=== PATIENT | female | born 1965 | race Caucasian/White ===

== ENCOUNTER → 2016-06-08 | Outpatient (CLI) | payer BC ==
[~2016-06-08] MED LIST: ALL180 PO; ASPCH81X PO; BCPILLS PO; BIOT1CAP8 PO; CHOL100010 PO; EFFSR150 PO; HYDR-5688 PO; MULT-506 PO; PANT40TA PO; SNG10 PO
== END | disposition home or self-care (01) ==
LOC: C.PAPS 16:36
PROVIDERS: ATTEND Obstetrics & Gynecology
DX: Z01.419 Encounter for gynecological examination (general) (routine) without abnormal findings (principal)

== ENCOUNTER → 2016-06-24 | Outpatient (CLI) | payer BC ==
--- NOTE | 2016-06-24 15:59 | MAMMOGRAPHY REPORT ---
BILATERAL DIGITAL DIAGNOSTIC MAMMOGRAM TOMOSYNTHESIS WITH CAD: 06/24/2016 CLINICAL HISTORY: Interval follow-up of right breast calcifications. The patient denies any current palpable lumps or other complaints. TECHNIQUE: Breast tomosynthesis in addition to standard 2D mammography was performed. Current study was also evaluated with a Computer Aided Detection (CAD) system. Bilateral CC and MLO 2-D and burak synthesis images were obtained; tomosynthesis images were obtained of the implant displaced views on ly. Spot magnification right cc and ML views were also obtained. COMPARISON: Comparison is made to exams dated: 07/01/2015 mammogram, 12/19/2014 mammogram, 06/19/2014 s tereotactic biopsy, 06/14/2014 mammogram, 06/08/2012 mammogram, and 10/08/2010 mammogram - [facility]. BREAST COMPOSITION: The tissue of both breasts is heterogeneously dense, which may obscure small ma sses. FINDINGS: Spot magnification views of the right breast again demonstrate a small 2 mm cluster of atif cifications within the right central breast. The calcifications are stable dating back to at least the 06/19/2014 exam. On the 06/19/2014 exam, the calcifications were all shown to layer on the right lateral view, consistent with benign milk of calcium. The calcifications are benign given the morph ology and long-term stability and are consistent with milk of calcium. The remainder of both breasts are stable compared to prior exams, without suspicious masses, calcifi cations, or areas of architectural distortion noted. Bilateral subpectoral saline implants are agai n noted. IMPRESSION: ACR BI-RADS CATEGORY 2: BENIGN The right breast calcifications are stable dating back to the May 2014 exam and are benign and compatible with milk of calcium. There is no mammographic evidence of malignancy in either breast. A 1 year screening mammogram is recommended. The patient has been verbally notified of the results. Approximately 10% of breast cancers are not detected with mammography. A negative mammographic repor t should not delay biopsy if a clinically suggestive mass is present. Radha Sierra M.D. /:06/24/2016 15:01:01 Discharge Coordinator: Cornelia BURDEN(Arnoldo)(Jenny), [facility] letter sent: Normal 1/2 BI-RADS Code: ACR BI-RADS Category 2: Benign
== END | disposition home or self-care (01) ==
LOC: C.MAMM 13:22
PROVIDERS: ATTEND Obstetrics & Gynecology
DX: R92.1 Mammographic calcification found on diagnostic imaging of breast (principal); Z98.82 Breast implant status

== ENCOUNTER 2016-07-14 14:01 | Inpatient (IN) | payer BC ==
[~2016-07-14] VITALS: Ht 154.9 cm; Wt 59.0 kg
[~2016-07-14 14:01] MED LIST changes: -ASPCH81X PO; -BIOT1CAP8 PO; -CHOL100010 PO; -HYDR-5688 PO; -MULT-506 PO; -PANT40TA PO
[2016-07-14] MEDS ORDERED: SODIUM CHLORIDE 0.9% 1000ML 1,000 ML IV STA ×2 (15:45)
[2016-07-14] MEDS ORDERED: ONDANSETRON INJ 2 MG/ML 2 ML VIAL IV STA (15:45)
--- NOTE | 2016-07-14 15:53 | EMERGENCY ROOM VISIT NOTE ---
History Report prepared by Johanna: Jason Dowling Under the Supervision of: Dr. Ancelmo Castle D.O. First contact with patient: 15:31 Chief Complaint: ABDOMINAL PAIN Stated Complaint: ABD. PAIN, FEVER, NAUSEA, SPASMS, LOWER BACK PAIN Nursing Triage Summary: pt here with diarrhea since this am. pt states also started with a fever today. pt states hx of "bowel problems" abd pains, nauseated History of Present Illness The patient is a 50 year old female who presents to the Emergency Room with complaints of waxing and waning abdominal pain that started upon waking this morning. She has been having episodes of diarrhea, and has been nauseous for the past 4 or 5 days. She says that she is getting intermittent abdominal spasms , which are followed up with dull abdominal pain. She describes the spasms as if something is "getting twisted". The patient went to [employer] earlier today, and was told that she has a fever of 102. The patient also had an episode of hematochezia. She notes that she has had chronic irregular bowel movements. In 2013, she had a colonoscopy and full workup, which did not reveal anything irregular. The patient gets chronic low back pain. She denies any urinary symptoms. She drinks occasional alcohol and does not use tobacco products. Source of History: patient Onset: Upon waking this morning Position: abdomen Quality: other (spasms, followed with dull pain) Timing: waxes/wanes Associated Symptoms: + diarrhea, + hematochezia, + nausea, No urinary symptoms Review of Systems See HPI for pertinent positives & negatives. A total of 10 systems reviewed and were otherwise negative. Past Medical & Surgical Medical Problems: (1) Asthma (2) Bronchitis (3) Diarrhea (4) Gallbladder disease Family History Heart disease Hypertension Social History Smoking Status: Never Smoker Smokeless Tobacco Use: No Alcohol Use: occasionally Marital Status: Housing Status: lives with family Occupation Status: employed Current/Historical Medications Scheduled Aspirin (Aspirin Chewable), 81 MG PO UD Biotin (Biotin), Unknown Dose PO DAILY Cholecalciferol (Vitamin D), 1,000 UNIT PO DAILY Multivitamin (Multivitamin), 1 TAB PO DAILY Allergies Coded Allergies: No Known Allergies (Verified , 07/14/16) Physical Exam Vital Signs Date Time Temp Pulse Resp B/P Pulse Ox O2 Delivery O2 Flow Rate FiO2 07/14/16 19:34 37.7 100 18 97/64 98 Room Air 07/14/16 17:45 37.7 106 18 109/68 97 Room Air 07/14/16 16:10 101 16 105/72 97 Room Air 07/14/16 14:10 37.5 117 16 122/81 96 Room Air Physical Exam GENERAL: Patient is awake, alert, and in no acute distress. Patient is resting comfortably and showing no signs of anxiety EYES: The conjunctivae are clear. The pupils are round and reactive. EARS, NOSE, MOUTH AND THROAT: The nose is without any evidence of any deformity. Mucous membranes are moist tongue is midline NECK: The neck is nontender and supple. RESPIRATORY: Normal respiratory effort is noted there is no evidence of wheezing rhonchi or rales CARDIOVASCULAR: Regular rate and rhythm noted there no murmurs rubs or gallops normal S1 normal S2 GASTROINTESTINAL: The abdomen was soft with significant right lower and right middle tenderness to palpation, no guarding or rigidity. BACK: Mild right CVA tenderness to percussion. No midline tenderness noted. Range of motion intact. MUSCULOSKELETAL/EXTREMITIES: There is no evidence of gross deformity full range of motion is noted in the hips and shoulders SKIN: There is no obvious evidence of any rash. There are no petechiae, pallor or cyanosis noted. NEUROLOGIC: Patient is awake alert and oriented x3. Medical Decision & Procedures ER Provider Diagnostic Interpretation: Radiology results as stated below per my review and radiologist interpretation: ABDOMINAL ULTRASOUND, RIGHT UPPER QUADRANT HISTORY: Generalized abdominal pain.. COMPARISON: None. FINDINGS: Pancreas: The pancreas demonstrates a normal echotexture. Liver: Unremarkable. Gallbladder: No gallbladder wall thickening. No gallstones. The gallbladder is mildly distended. CBD: 6 mm. Right kidney: No hydronephrosis. IMPRESSION: The gallbladder is mildly distended. However, there is no gallbladder wall thickening.. No gallstones. Electronically signed by: Vish Alvarado M.D. 07/14/2016 6:14 PM Dictated Date/Time: 07/14/2016 6:12 PM APPENDIX ULTRASOUND HISTORY: right sided pain COMPARISON: None. FINDINGS: Transabdominal scanning of the right lower quadrant was performed. The appendix was not identified. There are no fluid collections or masses within the right lower quadrant. IMPRESSION: The appendix was not identified. Electronically signed by: Vish Alvarado M.D. 07/14/2016 6:12 PM Dictated Date/Time: 07/14/2016 6:12 PM ABDOMEN AND PELVIS CT WITH IV AND ORAL CONTRAST CT DOSE: 274.29 mGy.cm HISTORY: right sided pain TECHNIQUE: Multiaxial CT images of the abdomen and pelvis were performed following the use of intravenous and oral contrast. COMPARISON STUDY: Abdomen and pelvis CT 11/17/2005. FINDINGS: The lung bases are clear. Bilateral breast augmentation. The liver, pancreas, spleen, and adrenal glands are unremarkable. The kidneys enhance normally. No renal stones. Mild fullness within the left renal collecting system without mimi hydronephrosis. No retroperitoneal lymphadenopathy. The gallbladder size distended. The uterus, adnexa, and bladder are unremarkable. The patient appears to be identified and is normal in caliber. This is best seen on image 267. No bowel wall thickening or obstruction. IMPRESSION: 1. No bowel wall thickening or obstruction. 2. The appendix appears to be within normal limits. 3. Mild fullness within the left renal collecting system without mimi hydronephrosis. 4. Mildly distended gallbladder. No gallbladder wall thickening. Recommend correlation with LFTs. Electronically signed by: Vish Alvarado M.D. 07/14/2016 7:06 PM Dictated Date/Time: 07/14/2016 6:57 PM Laboratory Results Test 07/14/16 15:42 07/14/16 16:54 07/14/16 17:40 Lipase 174 U/L ([id number]) Chemistry Specimen Hemolysis Human Chorionic Gonadotropin, Qual NEG (NEG) Urine Color YELLOW Urine Appearance CLEAR (CLEAR) Urine pH 5.0 (4.5-7.5) Urine Specific [place] 1.009 (1.000-1.030) Urine Protein NEG (NEG) Urine Glucose (UA) NEG (NEG) Urine Ketones NEG (NEG) Urine Occult Blood 1+ (NEG) Urine Nitrite NEG (NEG) Urine Bilirubin NEG (NEG) Urine Urobilinogen NEG (NEG) Urine Leukocyte Esterase NEG (NEG) Urine WBC (Auto) 0 /hpf (0-5) Urine RBC (Auto) 0-4 /hpf (0-4) Urine Hyaline Casts (Auto) 0 /lpf (0-5) Urine Epithelial Cells (Auto) 0-5 /lpf (0-5) Urine Bacteria (Auto) NEG (NEG) Laboratory results per my review. Medications Administered Medications (Trade) Dose Ordered Sig/Celeste Route Start Time Stop Time Status Last Admin Dose Admin Sodium Chloride (Nss 1000ml) 1,000 ml @ 999 mls/hr Q1H1M STAT IV 07/14/16 15:45 07/14/16 16:45 DC 07/14/16 16:09 999 MLS/HR Ondansetron HCl 4 mg 4 mg NOW STAT IV 07/14/16 15:45 07/14/16 15:47 DC 07/14/16 16:08 4 MG Sodium Chloride (Nss 1000ml) 1,000 ml @ 250 mls/hr Q4H STAT IV 07/14/16 15:45 07/14/16 19:44 DC 07/14/16 15:45 250 MLS/HR Morphine Sulfate (MoRPHine SULFATE INJ) 4 mg Q15M PRN IV 07/14/16 15:45 07/14/16 23:05 DC 07/14/16 19:41 4 MG ED Course 1542: The patient was evaluated in room C8. A complete history and physical examination were performed. 1545: Ordered Morphine Sulfate Inj 4 mg IV PRN, NSS 1000 ml @ 250 mls/hr IV, Zofran Inj 4 mg IV, NSS 1000 ml @ 999 mls/hr IV. 1717: I reevaluated the patient. 1913: Upon reevaluation, the patient is still not feeling well. I discussed results and treatment plan with her. She verbalizes agreement and understanding. The patient will be evaluated for further management and care. 1947: I discussed the patient with Dr. Tran [place] [facility] [place]. 1951: I discussed the patient with Dr. Urban Terrazashey [facility] - she will evaluate the patient for further treatment. Medical Decision Differential diagnosis: Etiologies such as appendicitis, diverticulitis, PUD, biliary pathology, UTI, pancreatitis, obstruction, mesenteric ischemia, aortic pathology, infections, inflammatory bowel disease, renal colic, as well as others were entertained. Nursing notes reviewed. The patient is a 50-year-old female who presented to the emergency department for an evaluation of abdominal pain. The patient's pain appeared to be mostly right sided. She was experiencing this pain for the last few weeks but this pain became worse over the last 24 hours and she was noted to have a fever. The patient was treated with IV fluids IV pain medicine and IV antiemetics. She was not significantly improved. I initially discussed his case with the on-call general surgeon. He does feel that given the patient's fever and ongoing pain she may require further inpatient workup. For this reason I discussed his case with the on-call [facility] hospitalist group. They've agreed to evaluate the patient in the emergency department for further management and disposition. Consults Time Called: 1939 Consulting Physician: Dr. Urban Conde [facility] family medicine Returned Call: 1951 I discussed the patient with Dr. Urban Conde [facility] family medicine - she will evaluate the patient for further treatment. Additional Consults: Time Called: 1939 Consulted Physician: Dr. Marc WITT general surgery Returned Call: 1947 Additional Comments: I discussed the patient with Dr. Marc WITT general surgery. Impression Primary Impression: Right sided abdominal pain Additional Impressions: Diarrhea Fever Scribe Attestation The scribe's documentation has been prepared under my direction and personally reviewed by me in its entirety. I confirm that the note above accurately reflects all work, treatment, procedures, and medical decision making performed by me. Departure Information Dispostion Being Evaluated By Hospitalist Referrals Pamela Ward M.D. (PCP) Patient Instructions My [facility] Problem Qualifiers Additional Impressions: Diarrhea Diarrhea type: unspecified type Qualified Codes: R19.7 - Diarrhea, unspecified Fever Fever type: unspecified Qualified Codes: R50.9 - Fever, unspecified
[2016-07-14] MEDS ORDERED: ASPCH81X PO (15:54)
[2016-07-14] MEDS ORDERED: MULT-506 PO (15:54)
[2016-07-14] MEDS ORDERED: BIOT1CAP8 PO (15:54)
[2016-07-14] MEDS ORDERED: CHOL100010 PO (15:54)
[2016-07-14 16:03] LABS: BASO % 0.1 %; BASO ABS # 0.01 K/uL (0-0.2); COMPLETE YES; HEMATOCRIT 40.4 % (37-47); IG% 0.1 %; LYMPH % 3.7 %; MEAN CELL VOLUME 94.4 fL (80-100); MEAN CORPUSCULAR HEMOGLOBIN 32.2 pg (25-34); MEAN CORPUSCULAR HGB CONC 34.2 g/dl (32-36); MEAN PLATELET VOLUME 9.9 fL (7.4-10.4); MONO % 2.5 %; NEUT % 93.6 %; PLATELET COUNT 245 K/uL (130-400); RED BLOOD COUNT 4.28 M/uL (4.2-5.4); WHITE BLOOD COUNT 8.13 K/uL (4.8-10.8)
[2016-07-14] MEDS: MoRPHine SULFATE 4 MG/ML 1 ML CARP\\VIAL IV PRN ×2 (16:09→19:41)
[2016-07-14 17:45] LABS: PREG INTERNAL NEGATIVE QC NEG CLEAR BACKGROUND; PREG INTERNAL POSITIVE QC POS CONTROL LINE
[2016-07-14 18:00] LABS: URINE APPEARANCE CLEAR (CLEAR); URINE BILIRUBIN NEG (NEG); URINE COLOR YELLOW; URINE EPITHELIAL CELL AUTO 0-5 /lpf (0-5); URINE NITRITE NEG (NEG); URINE SPECIFIC GRAVITY 1.009 (1.000-1.030); UROBILINOGEN NEG (NEG)
[2016-07-14 18:11] LABS: MANUAL MICROSCOPIC REQUIRED? NO; REVIEW REQ? NO
--- NOTE | 2016-07-14 18:14 | DIAGNOSTIC IMAGING REPORT ---
APPENDIX ULTRASOUND HISTORY: right sided pain COMPARISON: None. FINDINGS: Transabdominal scanning of the right lower quadrant was performed. The appendix was not identified. There are no fluid collections or masses within the right lower quadrant. IMPRESSION: The appendix was not identified. Electronically signed by: Vish Alvarado M.D. 07/14/2016 6:12 PM Dictated Date/Time: 07/14/2016 6:12 PM
--- NOTE | 2016-07-14 18:15 | DIAGNOSTIC IMAGING REPORT ---
ABDOMINAL ULTRASOUND, RIGHT UPPER QUADRANT HISTORY: Generalized abdominal pain.. COMPARISON: None. FINDINGS: Pancreas: The pancreas demonstrates a normal echotexture. Liver: Unremarkable. Gallbladder: No gallbladder wall thickening. No gallstones. The gallbladder is mildly distended. CBD: 6 mm. Right kidney: No hydronephrosis. IMPRESSION: The gallbladder is mildly distended. However, there is no gallbladder wall thickening.. No gallstones. Electronically signed by: Vish Alvarado M.D. 07/14/2016 6:14 PM Dictated Date/Time: 07/14/2016 6:12 PM
[2016-07-14 18:35] LABS: GLUCOSE 99 mg/dl (70-99)
[2016-07-14 18:36] LABS: BLOOD UREA NITROGEN 15 mg/dl (7-18); BUN/CREATININE RATIO 19.5 (10-20); CALCIUM 8.8 mg/dl (8.5-10.1); CARBON DIOXIDE 26 mmol/L (21-32); CHLORIDE 104 mmol/L (98-107); CREATININE 0.77 mg/dl (0.60-1.20); POTASSIUM 3.9 mmol/L (3.5-5.1); SODIUM 138 mmol/L (136-145)
[2016-07-14 18:37] LABS: ALKALINE PHOSPHATASE 98 U/L (45-117); ALT/SGPT 26 U/L (12-78); AST/SGOT 22 U/L (15-37)
[2016-07-14] MEDS ORDERED: OPTIRAY 320 IV PRN (18:45)
--- NOTE | 2016-07-14 19:07 | DIAGNOSTIC IMAGING REPORT ---
ABDOMEN AND PELVIS CT WITH IV AND ORAL CONTRAST CT DOSE: 274.29 mGy.cm HISTORY: right sided pain TECHNIQUE: Multiaxial CT images of the abdomen and pelvis were performed following the use of intravenous and oral contrast. COMPARISON STUDY: Abdomen and pelvis CT 11/17/2005. FINDINGS: The lung bases are clear. Bilateral breast augmentation. The liver, pancreas, spleen, and adrenal glands are unremarkable. The kidneys enhance normally. No renal stones. Mild fullness within the left renal collecting system without mimi hydronephrosis. No retroperitoneal lymphadenopathy. The gallbladder size distended. The uterus, adnexa, and bladder are unremarkable. The patient appears to be identified and is normal in caliber. This is best seen on image 267. No bowel wall thickening or obstruction. IMPRESSION: 1. No bowel wall thickening or obstruction. 2. The appendix appears to be within normal limits. 3. Mild fullness within the left renal collecting system without mimi hydronephrosis. 4. Mildly distended gallbladder. No gallbladder wall thickening. Recommend correlation with LFTs. Electronically signed by: Vish Alvarado M.D. 07/14/2016 7:06 PM Dictated Date/Time: 07/14/2016 6:57 PM
[2016-07-14] MEDS ORDERED: ONDANSETRON INJ 2 MG/ML 2 ML VIAL IV PRN (21:00)
[2016-07-14] MEDS ORDERED: ACETAMINOPHEN 325 MG TAB PO PRN (21:00)
[2016-07-14] MEDS ORDERED: MoRPHine SULFATE 4 MG/ML 1 ML CARP\\VIAL IV PRN (21:00)
[2016-07-14] MEDS ORDERED: ACETAMINOPHEN IV 100 ML IV PRN (21:00)
[2016-07-14] MEDS ORDERED: MoRPHine SULFATE 2 MG/ML CARP IV PRN (21:00)
[2016-07-14] MEDS: KETOROLAC TROMETHAMINE 30 MG/ML VIAL IV PRN (22:13)
[2016-07-14] MEDS ORDERED: PIPERACILLIN/TAZOBACTAM 4.5 GM/100ML D5W IV STA (22:23)
--- NOTE | 2016-07-14 22:23 | History and Physical ---
History & Physical Date & Time of Service: Jul 14, 2016 at 22:08 Chief Complaint: Abd. Pain, Fever, Nausea, Spasms, Lower Back Pain Primary Care Physician: Pamela Ward M.D. History of Present Illness Source: patient The patient is a 50-year-old female who presents to the emergency department with complaint of abdominal pain, diarrhea and nausea over the past 4-5 days, which worsened considerably this morning. She has had off-and-on symptoms since 2013, at which time she had a colonoscopy and other testing which was normal. She went to [facility] [employer] earlier in the day today, and was told that she had a fever of 102. She did have a single episode of hematochezia. Today the abdominal pain has been in the form of spasms and right upper quadrant, and generalized abdominal pain throughout. She has not had any recent travel or sick exposures, and she has not eaten any questionable foods. Past Medical/Surgical History Medical Problems: (1) Asthma Status: Resolved (2) Bronchitis Status: Resolved (3) Diarrhea Status: Chronic Family History Heart disease Hypertension Social History Smoking Status: Never Smoker Smokeless Tobacco Use: No Alcohol Use: none Drug Use: none Marital Status: Housing status: lives with family Occupational Status: employed Multi-Drug Resistant Organisms History of MDRO: No Allergies Coded Allergies: No Known Allergies (Verified , 07/14/16) Home Medications Scheduled Aspirin (Aspirin Chewable), 81 MG PO UD Biotin (Biotin), Unknown Dose PO DAILY Cholecalciferol (Vitamin D), 1,000 UNIT PO DAILY Multivitamin (Multivitamin), 1 TAB PO DAILY Review of Systems The patient denies chest pain, palpitations, shortness of breath, cough, lower extremity swelling, vision change, hearing change, sore throat, chills, sweats , weight change, blood in urine or stool, dysuria, urinary frequency or urgency , lightheadedness, dizziness, headache, memory loss, rash, abnormal bruising or bleeding, imbalance, focal weakness, numbness or tingling in arms or legs, arthralgias or myalgias, neck pain, night sweats, or allergy symptoms. The review of systems is otherwise negative other than for that already noted above, and at least 10 systems have been reviewed. Physical Exam Vital Signs Date Time Temp Pulse Resp B/P Pulse Ox O2 Delivery O2 Flow Rate FiO2 07/14/16 22:04 39.1 104 16 104/65 96 Room Air 07/14/16 21:02 38.3 107 20 111/65 96 Room Air 07/14/16 19:34 37.7 100 18 97/64 98 Room Air 07/14/16 17:45 37.7 106 18 109/68 97 Room Air 07/14/16 16:10 101 16 105/72 97 Room Air 07/14/16 14:10 37.5 117 16 122/81 96 Room Air The patient is awake, well-developed and adequately nourished, alert and oriented 3, normocephalic and atraumatic, lying in bed and in mild acute distress. HEENT--PERRL, EOMI, mucous membranes and oropharynx dry. Neck--supple, no JVD or bruits, thyroid normal, trachea midline, no adenopathy. Heart--normal S1 and S2, no extra beats, no murmurs, rubs or gallops. Lungs--clear bilaterally with good air movement, no respiratory distress, no accessory muscle use. Abdomen--normal bowel sounds and soft, nontender post morphine, and nondistended , no hernias or masses, no organomegaly. Extremities--no cyanosis, clubbing or edema. There are good distal pulses b/l. Dermatologic--normal skin turgor, normal color, warm and dry, no abnormal lymph nodes, no rash. Neurologic--cranial nerves II through XII grossly intact, motor and sensory examination normal. Rheumatologic--normal range of motion, nontender, muscles and joints. Psychiatric--normal affect. Diagnostics Laboratory Results Results Past 24 Hours Test 07/14/16 15:42 07/14/16 16:54 07/14/16 17:40 Range/Units White Blood Count 8.13 4.8-10.8 K/uL Red Blood Count 4.28 4.2-5.4 M/uL Hemoglobin 13.8 12.0-16.0 g/dL Hematocrit 40.4 37-47 % Mean Corpuscular Volume 94.4 80-100 fL Mean Corpuscular Hemoglobin 32.2 25-34 pg Mean Corpuscular Hemoglobin Concent 34.2 32-36 g/dl Platelet Count 245 130-400 K/uL Mean Platelet Volume 9.9 7.4-10.4 fL Neutrophils (%) (Auto) 93.6 % Lymphocytes (%) (Auto) 3.7 % Monocytes (%) (Auto) 2.5 % Eosinophils (%) (Auto) 0.0 % Basophils (%) (Auto) 0.1 % Neutrophils # (Auto) 7.61 1.4-6.5 K/uL Lymphocytes # (Auto) 0.30 1.2-3.4 K/uL Monocytes # (Auto) 0.20 0.11-0.59 K/uL Eosinophils # (Auto) 0.00 0-0.5 K/uL Basophils # (Auto) 0.01 0-0.2 K/uL RDW Standard Deviation 48.3 36.4-46.3 fL RDW Coefficient of Variation 14.1 11.5-14.5 % Immature Granulocyte % (Auto) 0.1 % Immature Granulocyte # (Auto) 0.01 0.00-0.02 K/uL Sodium Level 138 136-145 mmol/L Potassium Level 3.9 3.5-5.1 mmol/L Chloride Level 104 98-107 mmol/L Carbon Dioxide Level 26 21-32 mmol/L Anion Gap 8.0 3-11 mmol/L Blood Urea Nitrogen 15 7-18 mg/dl Creatinine 0.77 0.60-1.20 mg/dl Est Creatinine Clear Calc Drug Dose 72.1 ml/min Estimated GFR () 104.3 Estimated GFR (Non- 90.0 BUN/Creatinine Ratio 19.5 10-20 Random Glucose 99 70-99 mg/dl Calcium Level 8.8 8.5-10.1 mg/dl Total Bilirubin 0.4 0.2-1 mg/dl Direct Bilirubin 0-0.2 mg/dl Aspartate Amino Transf (AST/SGOT) 22 15-37 U/L Alanine Aminotransferase (ALT/SGPT) 26 12-78 U/L Alkaline Phosphatase 98 45-117 U/L Total Protein 7.6 6.4-8.2 gm/dl Albumin 3.9 3.4-5.0 gm/dl Lipase 174 73-393 U/L Chemistry Specimen Hemolysis Human Chorionic Gonadotropin, Qual NEG NEG Urine Color YELLOW Urine Appearance CLEAR CLEAR Urine pH 5.0 4.5-7.5 Urine Specific [place] 1.009 1.000-1.030 Urine Protein NEG NEG Urine Glucose (UA) NEG NEG Urine Ketones NEG NEG Urine Occult Blood 1+ NEG Urine Nitrite NEG NEG Urine Bilirubin NEG NEG Urine Urobilinogen NEG NEG Urine Leukocyte Esterase NEG NEG Urine WBC (Auto) 0 0-5 /hpf Urine RBC (Auto) 0-4 0-4 /hpf Urine Hyaline Casts (Auto) 0 0-5 /lpf Urine Epithelial Cells (Auto) 0-5 0-5 /lpf Urine Bacteria (Auto) NEG NEG Diagnostic Radiology ABDOMINAL ULTRASOUND, RIGHT UPPER QUADRANT HISTORY: Generalized abdominal pain.. COMPARISON: None. FINDINGS: Pancreas: The pancreas demonstrates a normal echotexture. Liver: Unremarkable. Gallbladder: No gallbladder wall thickening. No gallstones. The gallbladder is mildly distended. CBD: 6 mm. Right kidney: No hydronephrosis. IMPRESSION: The gallbladder is mildly distended. However, there is no gallbladder wall thickening.. No gallstones. Electronically signed by: Vish Alvarado M.D. Patient Name: JONAH ARMIJO Unit Number: [id number] Dictated: 07/14/161811 Transcribed: 07/14/161811 [facility] Printed Date/Time: [~ rep prt dt]/[~ rep prt tm] [~ rep ct labl] - [~ rep ct ivnm] [facility] [place] [address] Dictated: 07/14/161811 Transcribed: 07/14/161811 [facility] Printed Date/Time: [~ rep prt dt]/[~ rep prt tm] [~ rep ct labl] - [~ rep ct ivnm] [~ rep ct add3]] APPENDIX ULTRASOUND HISTORY: right sided pain COMPARISON: None. FINDINGS: Transabdominal scanning of the right lower quadrant was performed. The appendix was not identified. There are no fluid collections or masses within the right lower quadrant. IMPRESSION: The appendix was not identified. Electronically signed by: Vish Alvarado M.D. 07/14/2016 6:12 PM Dictated Date/Time: 07/14/2016 6:12 PM The status of this report is Signed. Draft = Not yet reviewed or approved by Radiologist. Signed = Reviewed and approved by Radiologist. <AttendingPhy></AttendingPhy> <FamilyPhy>Pamela Ward M.D.</FamilyPhy> < PrimaryPhy>Pamela Ward M.D.</PrimaryPhy> <UnitNumber>[id number]</UnitNumber> < VisitNumber>[id number]</VisitNumber> <PatientName>JONAH ARMIJO</PatientName> < DateOfBirth>1965</DateOfBirth> <Location>[facility]</Location> <ServiceDate></ServiceDate> <MNE>ESINDI</MNE> <OrderingPhy>Ancelmo Castle D.O.</ OrderingPhy> <OrderingPhyMNE>f rep ord dr patel</OrderingPhyMNE> <DictatingPhyMNE> f rep dict dr patel</DictatingPhyMNE> <CCListMNE>f rep ct jorge</CCListMNE> < AdmittingPhyMNE>f pt admit dr patel</AdmittingPhyMNE> <AttendingPhyMNE>f pt attend dr patel</AttendingPhyMNE> <ConsultingPhyMNE>f pt consult dr patel</ConsultingPhyMNE> <FamilyPhyMNE>f pt fam dr patel</FamilyPhyMNE> <OtherPhyMNE>f pt other dr patel</OtherPhyMNE> < PrimaryPhyMNE>f pt prim care dr patel</PrimaryPhyMNE> <ReferringPhyMNE>f pt referring dr patel</ReferringPhyMNE> [~ rep ct add3]] ABDOMEN AND PELVIS CT WITH IV AND ORAL CONTRAST CT DOSE: 274.29 mGy.cm HISTORY: right sided pain TECHNIQUE: Multiaxial CT images of the abdomen and pelvis were performed following the use of intravenous and oral contrast. COMPARISON STUDY: Abdomen and pelvis CT 11/17/2005. FINDINGS: The lung bases are clear. Bilateral breast augmentation. The liver, pancreas, spleen, and adrenal glands are unremarkable. The kidneys enhance normally. No renal stones. Mild fullness within the left renal collecting system without miim hydronephrosis. No retroperitoneal lymphadenopathy. The gallbladder size distended. The uterus, adnexa, and bladder are unremarkable. The patient appears to be identified and is normal in caliber. This is best seen on image 267. No bowel wall thickening or obstruction. IMPRESSION: 1. No bowel wall thickening or obstruction. 2. The appendix appears to be within normal limits. 3. Mild fullness within the left renal collecting system without mimi hydronephrosis. 4. Mildly distended gallbladder. No gallbladder wall thickening. Recommend correlation with LFTs. Electronically signed by: Vish Alvarado M.D. 07/14/2016 7:06 PM Dictated Date/Time: 07/14/2016 6:57 PM The status of this report is Signed. Draft = Not yet reviewed or approved by Radiologist. Signed = Reviewed and approved by Radiologist. <AttendingPhy></AttendingPhy> <FamilyPhy>Pamela Ward M.D.</FamilyPhy> < PrimaryPhy>Pamela Ward M.D.</PrimaryPhy> <UnitNumber>[id number]</UnitNumber> < VisitNumber>[id number]</VisitNumber> <PatientName>JONAH ARMIJO</PatientName> < DateOfBirth>1965</DateOfBirth> <Location>[facility]</Location> <ServiceDate></ServiceDate> <MNE>ESINDI</MNE> <OrderingPhy>Ancelmo Castle D.O.</ OrderingPhy> <OrderingPhyMNE>f rep ord dr patel</OrderingPhyMNE> <DictatingPhyMNE> f rep dict dr patel</DictatingPhyMNE> <CCListMNE>f rep ct jorge</CCListMNE> < AdmittingPhyMNE>f pt admit dr patel</AdmittingPhyMNE> <AttendingPhyMNE>f pt attend dr patel</AttendingPhyMNE> <ConsultingPhyMNE>f pt consult dr patel</ConsultingPhyMNE> <FamilyPhyMNE>f pt fam dr patel</FamilyPhyMNE> <OtherPhyMNE>f pt other dr patel</OtherPhyMNE> < PrimaryPhyMNE>f pt prim care dr patel</PrimaryPhyMNE> <ReferringPhyMNE>f pt referring dr patel</ReferringPhyMNE> Impression Assessment and Plan Abdominal pain/nausea/vomiting and diarrhea/distended gallbladder on ultrasound and CT--patient will be admitted to the medical surgical floor and nothing by mouth status. Place on Zosyn 3.375 mg IV every 6 hours, Zofran 4 mg IV every 6 hours when necessary, Protonix 40 mg IV daily, normal saline with potassium chloride 20 mEq 100 mils per hour. Order a HIDA scan with gallbladder ejection fraction for further assessment. 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 Hold aspirin, vitamin, vitamin D, multivitamin. Level of Care Med/Surg Advanced Directives Existing Advance Directive: No Existing Living Will: No Existing Power of Hardness Inspector: No Resuscitation Status FULL RESUSCITATION VTE Prophylaxis VTE Risk Assessment Done? Y/N: Yes Risk Level: Moderate Given or contraindicated: SCD's
[2016-07-14] MEDS ORDERED: PIPERACILL/TAZOBAC CONSULT ACTIVE PRN (22:30)
[2016-07-14 23:00] VITALS: Ht 154.9 cm; Wt 59.0 kg
[2016-07-14 23:04] VITALS: BP 115/69; PULSE 92; TEMP 37.5; O2SAT 93
[2016-07-15] MEDS: NSS + 20MEQ KCL 1000ML 1,000 ML IV SCH ×3 (00:08→18:31)
[2016-07-15 05:24] LABS: COMPLETE YES; EOS % 0.2 %; HEMATOCRIT 36.9 % (37-47); LYMPH % 13.8 %; MEAN CELL VOLUME 93.2 fL (80-100); MEAN CORPUSCULAR HEMOGLOBIN 31.1 pg (25-34); MEAN CORPUSCULAR HGB CONC 33.3 g/dl (32-36); MEAN PLATELET VOLUME 9.1 fL (7.4-10.4); MONO % 5.3 %; NEUT % 80.7 %; PLATELET COUNT 185 K/uL (130-400); RED BLOOD COUNT 3.96 M/uL (4.2-5.4); WHITE BLOOD COUNT 4.34 K/uL (4.8-10.8)
[2016-07-15 05:33] LABS: INR 1.1 (0.9-1.1); PARTIAL THROMBOPLASTIN RATIO 1.2; PROTHROMBIN TIME (PATIENT) 11.6 SECONDS (9.0-12.0)
[2016-07-15] MEDS: PIPERACILL/TAZOBAC IV 3.375 GM in DEXTROSE 5% 100ML 100 ML IV SCH ×3 (05:36→22:13)
[2016-07-15 06:00] LABS: ALKALINE PHOSPHATASE 73 U/L (45-117); ALT/SGPT 22 U/L (12-78); AST/SGOT 18 U/L (15-37); BLOOD UREA NITROGEN 7 mg/dl (7-18); BUN/CREATININE RATIO 9.2 (10-20); CALCIUM 7.9 mg/dl (8.5-10.1); CARBON DIOXIDE 27 mmol/L (21-32); CHLORIDE 109 mmol/L (98-107); CREATININE 0.81 mg/dl (0.60-1.20); GLUCOSE 91 mg/dl (70-99); MAGNESIUM 1.7 mg/dl (1.8-2.4); POTASSIUM 3.8 mmol/L (3.5-5.1); SODIUM 143 mmol/L (136-145)
[2016-07-15 08:00] VITALS: O2SAT 95
[2016-07-15 08:11] VITALS: BP 104/64; PULSE 83; TEMP 37.5; O2SAT 95
[2016-07-15] MEDS: PANTOprazole INJ 40 MG in SYRINGE 0 ML IV SCH (11:10)
[2016-07-15] MEDS ORDERED: SINCALIDE INJ 1.2 MCG in SODIUM CHLORIDE 0.9% 100ML 100 ML IV SCH (13:30)
--- NOTE | 2016-07-15 14:36 | Progress Note ---
Subjective Date of Service: Jul 15, 2016. (Judith Romano PA-C) Subjective Pt evaluation today including: conversation w/ patient Patient seen and evaluated. Last fever at 11 PM. Patient denies fever/chills. She states her pain is adequately controlled at this time. However pain is exacerbated with palpation of the abdomen. No acute abdomen with rigidity/ guarding. She is nothing by mouth awaiting HIDA scan. Continues to have diarrhea. She reports this is been ongoing issue 3 years. (Judith Romano PA-C) Problem List Medical Problems: (1) Diarrhea Status: Chronic (2) Fever Status: Acute (3) Right sided abdominal pain Status: Acute (Judith Romano PA-C) Review of Systems Constitutional: No chills, No fever Respiratory: No cough, No shortness of breath Cardiac: No chest pain Abdomen: + diarrhea, + nausea, + pain ("twisting"), No vomiting Musculoskeletal: No calf pain, No swelling Female : No dysuria (Judith Romano PA-C) Medications Current Inpatient Medications Medications (Trade) Dose Ordered Sig/[place] Route Start Time Stop Time Status Last Admin Dose Admin Ioversol (Optiray 320) 125 ml UD PRN IV 07/14/16 18:45 07/18/16 18:44 Acetaminophen (Tylenol Tab) 650 mg Q4H PRN PO 07/14/16 21:00 08/13/16 20:59 07/14/16 21:12 650 MG Ondansetron HCl 4 mg 4 mg Q6H PRN IV 07/14/16 21:00 08/13/16 20:59 Acetaminophen (Ofirmev Iv) 100 ml @ 400 mls/hr Q8H PRN IV 07/14/16 21:00 08/13/16 20:59 Ketorolac Tromethamine 30 mg 30 mg Q6H PRN IV 07/14/16 21:00 07/19/16 20:59 07/14/16 22:13 30 MG Pantoprazole Sodium 40 mg/ Syringe 10 ml @ 5 mls/min DAILY@11 IV 07/15/16 11:00 08/14/16 10:59 07/15/16 11:10 5 MLS/MIN Potassium Chloride/Sodium Chloride (Nss + 20meq KCl 1000ml) 1,000 ml @ 100 mls/hr Q10H IV 07/14/16 23:00 08/13/16 22:59 07/15/16 08:44 100 MLS/HR Morphine Sulfate (MoRPHine SULFATE INJ) 2 mg Q2H PRN IV 07/14/16 21:00 07/28/16 20:59 Morphine Sulfate 4 mg 4 mg Q2H PRN IV 07/14/16 21:00 07/28/16 20:59 Piperacillin Sod/ Tazobactam Sod/ Dextrose (Zosyn Iv/D5 100ml) 115 ml @ 28.75 mls/ hr Q8H IV 07/15/16 05:00 07/25/16 04:59 07/15/16 05:36 28.75 MLS/HR Piperacillin Sod/ Tazobactam Sod 1 ea 1 ea UD PRN N/A 07/14/16 22:30 08/13/16 22:29 Sincalide/Sodium Chloride (Kinevac Inj/Nss 100ml) 101.2 ml @ 200 mls/hr TODAY@1330 IV 07/15/16 13:30 07/15/16 18:00 (Judith Romano PA-C) Objective Vital Signs Date Time Temp Pulse Resp B/P Pulse Ox O2 Delivery O2 Flow Rate FiO2 07/15/16 08:11 37.5 83 16 104/64 95 Room Air 07/15/16 08:00 95 Room Air 07/14/16 23:04 37.5 92 18 115/69 93 Room Air 07/14/16 23:00 Room Air 07/14/16 23:00 18 Room Air 07/14/16 22:04 39.1 104 16 104/65 96 Room Air 07/14/16 21:02 38.3 107 20 111/65 96 Room Air 07/14/16 19:34 37.7 100 18 97/64 98 Room Air 07/14/16 17:45 37.7 106 18 109/68 97 Room Air 07/14/16 16:10 101 16 105/72 97 Room Air (Judith Romano PA-C) Physical Exam General Appearance: WD/WN, no apparent distress Eyes: sclerae normal ENT: hearing grossly normal Neck: supple, no JVD, trachea midline Respiratory/Chest: lungs clear, normal breath sounds, no respiratory distress, no accessory muscle use Cardiovascular: regular rate, rhythm, no gallop, no murmur Abdomen: soft, + abnormal bowel sounds (hyperactive), + tenderness Extremities: no pedal edema, no calf tenderness Neurologic/Psychiatric: alert, oriented x 3 Skin: normal color, warm/dry (Judith Romano, LENNY) Laboratory Results Last 24 Hours Test 07/14/16 15:42 07/14/16 16:54 07/14/16 17:40 07/15/16 05:12 White Blood Count 8.13 K/uL 4.34 K/uL Red Blood Count 4.28 M/uL 3.96 M/uL Hemoglobin 13.8 g/dL 12.3 g/dL Hematocrit 40.4 % 36.9 % Mean Corpuscular Volume 94.4 fL 93.2 fL Mean Corpuscular Hemoglobin 32.2 pg 31.1 pg Mean Corpuscular Hemoglobin Concent 34.2 g/dl 33.3 g/dl Platelet Count 245 K/uL 185 K/uL Mean Platelet Volume 9.9 fL 9.1 fL Neutrophils (%) (Auto) 93.6 % 80.7 % Lymphocytes (%) (Auto) 3.7 % 13.8 % Monocytes (%) (Auto) 2.5 % 5.3 % Eosinophils (%) (Auto) 0.0 % 0.2 % Basophils (%) (Auto) 0.1 % 0.0 % Neutrophils # (Auto) 7.61 K/uL 3.50 K/uL Lymphocytes # (Auto) 0.30 K/uL 0.60 K/uL Monocytes # (Auto) 0.20 K/uL 0.23 K/uL Eosinophils # (Auto) 0.00 K/uL 0.01 K/uL Basophils # (Auto) 0.01 K/uL 0.00 K/uL RDW Standard Deviation 48.3 fL 48.1 fL RDW Coefficient of Variation 14.1 % 14.1 % Immature Granulocyte % (Auto) 0.1 % 0.0 % Immature Granulocyte # (Auto) 0.01 K/uL 0.00 K/uL Sodium Level 138 mmol/L 143 mmol/L Potassium Level 3.9 mmol/L 3.8 mmol/L Chloride Level 104 mmol/L 109 mmol/L Carbon Dioxide Level 26 mmol/L 27 mmol/L Anion Gap 8.0 mmol/L 7.0 mmol/L Blood Urea Nitrogen 15 mg/dl 7 mg/dl Creatinine 0.77 mg/dl 0.81 mg/dl Est Creatinine Clear Calc Drug Dose 72.1 ml/min 68.5 ml/min Estimated GFR () 104.3 98.2 Estimated GFR (Non- 90.0 84.7 BUN/Creatinine Ratio 19.5 9.2 Random Glucose 99 mg/dl 91 mg/dl Calcium Level 8.8 mg/dl 7.9 mg/dl Total Bilirubin 0.4 mg/dl 0.4 mg/dl Direct Bilirubin mg/dl < 0.1 mg/dl Aspartate Amino Transf (AST/SGOT) 22 U/L 18 U/L Alanine Aminotransferase (ALT/SGPT) 26 U/L 22 U/L Alkaline Phosphatase 98 U/L 73 U/L Total Protein 7.6 gm/dl 6.0 gm/dl Albumin 3.9 gm/dl 2.9 gm/dl Lipase 174 U/L Chemistry Specimen Hemolysis Human Chorionic Gonadotropin, Qual NEG Urine Color YELLOW Urine Appearance CLEAR Urine pH 5.0 Urine Specific [place] 1.009 Urine Protein NEG Urine Glucose (UA) NEG Urine Ketones NEG Urine Occult Blood 1+ Urine Nitrite NEG Urine Bilirubin NEG Urine Urobilinogen NEG Urine Leukocyte Esterase NEG Urine WBC (Auto) 0 /hpf Urine RBC (Auto) 0-4 /hpf Urine Hyaline Casts (Auto) 0 /lpf Urine Epithelial Cells (Auto) 0-5 /lpf Urine Bacteria (Auto) NEG Prothrombin Time 11.6 SECONDS Prothromb Time International Ratio 1.1 Activated Partial Thromboplast Time 32.4 SECONDS Partial Thromboplastin Ratio 1.2 Magnesium Level 1.7 mg/dl (Judith Romano, PA-C) Assessment and Plan SIRS: Abdominal Pain with N/V/D - Distended GB: - NSS + 20 mEq KCl 100 mL/hr - Protonix 40 mg IV daily - Zosyn 3.375 g Q8H - Toradol 30 mg IV Q6H PRN and morphine 2 mg PRN - HIDA - pending - may need surgical consult if evidence of dysfunction - Trend CBC, LFTs, BMP - Consult GI - appreciate recommendations - awaiting HIDA scan results Diarrhea: - C. diff negative and neg. for Salmonella - Monitor electrolytes DVT Prophylaxis: - CONNIE/SCDs/Ambulation Code Status: FULL RESUSCITATION Disposition: Return home when medically stable (Judith Romano PA-C) I personally evaluated this patient and performed a physical exam. I reviewed the orders. I read this note completed by Judith Romano PA-C and agree with the contents in entirety. Hida scan showed EF 5%. Surgery consulted. (Nicko Edge, DO)
[2016-07-15 15:18] VITALS: BP 98/57; PULSE 90; TEMP 37; O2SAT 98
[2016-07-15] MEDS: KETOROLAC TROMETHAMINE 30 MG/ML VIAL IV PRN (15:57)
--- NOTE | 2016-07-15 16:40 | DIAGNOSTIC IMAGING REPORT ---
NUCLEAR MEDICINE HEPATOBILIARY SCAN WITH EJECTION FRACTION HISTORY: distended gallbladder, diarrhea, fever COMPARISON: Abdomen and pelvis CT 07/14/2016. TECHNIQUE: Immediately following the intravenous administration of 5.4 mCi Tc-99m Choletec, dynamic anterior abdominal imaging pre/post 1.2 mcg of Kinevac was performed. FINDINGS: Uniform hepatic tracer accumulation is shown. Prompt intrahepatic biliary excretion is seen. The gallbladder, common bile duct, and small bowel are all visualized by 25 minutes. This appearance represents the normal sequence of biliary excretion. The gall bladder ejection fraction following administration of Kinevac was 5% (normal >35%). IMPRESSION: 1. No evidence for cystic duct obstruction. 2. Abnormally low gallbladder ejection fraction calculated to be 5 %. Electronically signed by: Vish Alvarado M.D. 07/15/2016 4:39 PM Dictated Date/Time: 07/15/2016 4:37 PM
[2016-07-15 23:01] VITALS: BP 104/63; PULSE 71; TEMP 36.8; O2SAT 98
[2016-07-16] VITALS (8 sets, daily range): BP systolic 95–120; BP diastolic 56–79; PULSE 60–73; TEMP 36.3–36.7; O2SAT 94–99
--- NOTE | 2016-07-16 00:18 | GASTROINTESTINAL CONSULTATION ---
DATE OF CONSULTATION: 07/15/2016 CHIEF COMPLAINT: Chronic diarrhea, right upper quadrant epigastric pain and diffuse abdominal pain with fever. HISTORY OF PRESENT ILLNESS: Mrs. Cortez is a 50-year-old white female presents to the Emergency Room with nausea and diarrhea along with abdominal pain for the past 5 days. This seemed to intensify over this period of time. This was unusual and that it was accompanied by a fever of 102 degrees at home. She reports a brief episode of rectal bleeding, but has not had any hematemesis, coffee-ground emesis, melena or bright red blood per rectum. Although she has generalized pain, she also reports right lower quadrant pain as well. The patient denies any recent flu-like symptoms and for the most part of the diarrhea which has been chronic for her has been managed empirically without an obvious diagnosis. She did see Dr. Patel in 2013 for which a workup was performed, but no specific cause could be identified according to the patient. She is unaware if she had an upper endoscopy performed. Celiac disease was also considered at one point, but she believes this was eliminated. The patient had had an approximately 13-pound weight loss which has been intentional over the last year or so. Her gallbladder is intact. PAST MEDICAL HISTORY: Significant for asthma, bronchitis and chronic diarrhea. FAMILY HISTORY: Significant for heart disease and hypertension. The patient has no reported surgeries in the past including C-sections, appendectomy. SOCIAL HISTORY: The patient denies tobacco or alcohol use. She is and lives with family. 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 ALLERGIES: She has no known drug allergies. HOME MEDICATIONS: Include aspirin, biotin, vitamin D, and multivitamins. REVIEW OF SYSTEMS: Otherwise noncontributory based on 14-point exam. Historically, she has not been experiencing rectal bleeding, although did report one event of rectal bleeding during this acute illness. She has had no travel to foreign lands, has not been out in the [facility] and has not been around any livestock. She does not use NSAIDs and has no prior history of peptic ulcer disease. Her gallbladder is intact. PHYSICAL EXAMINATION: ADMISSION VITAL SIGNS: During the early part to the ER admission, the patient was afebrile, although she did have a temperature last evening at 2200 hours of 39.1 as a maximum temperature. Pulse 117, respirations 16, blood pressure 122/81. She is 96% on room air. HEENT: Reveal anicteric sclerae. The oral mucosa is moist. The conjunctivae are moist. NECK: There is no cervical or supraclavicular adenopathy. I do not appreciate thyromegaly. HEART: Normal S1, S2. LUNGS: Clear to auscultation without rales, rhonchi or wheezes. ABDOMEN: Soft. Mildly tender diffusely, although there is a component of right-sided pain, perhaps more than the left side, although on palpation she does have some mild left lower quadrant tenderness as well. EXTREMITIES: Without clubbing, cyanosis or edema. RECTAL: Deferred at that time. LABORATORY STUDIES AND IMAGING DATA ON ADMISSION: The patient's white count is 8.3 with a hemoglobin of 13.8, MCV 94, platelet count 245. BUN and creatinine are 15 and 0.7. Liver tests are all within the normal range including total bilirubin 0.4, AST 22, ALT 26, alkaline phosphatase 98, total protein 7.6, lipase 174. Urinalysis showed +1 blood, but no evidence for leukocyte esterase, nitrites or white cells and is negative for bacteria. She did have an abdominal ultrasound, which shows a common bile duct of 6 mm and unremarkable appearing pancreas and liver, and an intact gallbladder that is mildly distended but without wall thickening or stones. An ultrasound of the appendix - the appendix was not identified. There were no fluid collections. CT scan also revealed a mild fullness within the left renal collecting system without mimi hydronephrosis, mildly distended gallbladder, no gallbladder wall thickening. Liver, pancreas, spleen, adrenals were unremarkable. There is no adenopathy identified. The patient also had a HIDA scan today which shows a significantly abnormal ejection fraction of 5%. The cystic duct; however, was not obstructed. IMPRESSION AND PLAN: Mrs. Cortez has diffuse abdominal pain, although components of pain are also specific in the right upper and lower quadrants and in the left lower quadrant. Her diarrhea has been chronic over the past 3 years and has had a workup by Dr. Patel in the past. However, she did have a single event of rectal bleeding. The fever was apparently identified at [facility]; however, she was afebrile at admission including the Emergency Room visit. She giuliano have a fever but is now afebrile. Although the patient's pain in the right upper quadrant may be related that the dysfunctional gallbladder, it would not appear that there is a clear obstructive process in the biliary system. This is in the setting of normal LFTs, pancreatic enzymes and an absence of ductal dilation or filling defects in any of the studies appreciated. It is difficult to know if a gallbladder resection will provide relief of all of the patient's symptoms. At some point, it may be prudent to repeat a workup regarding the patient's chronic diarrhea, particularly in light of the brief episode of rectal bleeding that occurred during this event. This would include a colonoscopy, stool studies for fecal white cells, if not recently performed and perhaps upper endoscopy to exclude peptic ulcer disease, evidence of celiac disease or other mucosal abnormality. There was no evidence for Salmonella or Clostridium difficile infection or evidence of colitis, mentioned on the CT scan. Some of this chronic diarrhea workup can be performed as an outpatient and I will have the patient eventually return to the clinic with Dr. Patel for continued followup of the patient's symptoms. CURRENT MEDICATIONS: Include pantoprazole, Zosyn, Zofran, Toradol and morphine for pain control. It may be advisable to obtain stools for fecal white blood cells and celiac markers, if not performed as part of her prior workup. She did have a tTG antigliadin markers and a reticulin study all of which were negative in 2006, so the likelihood of celiac disease is low, but may be worth repeating. We will follow with you. Thank you for allowing me to participate in this patient's care. BRETT
[2016-07-16] MEDS: NSS + 20MEQ KCL 1000ML 1,000 ML IV SCH (03:14)
[2016-07-16] MEDS: PIPERACILL/TAZOBAC IV 3.375 GM in DEXTROSE 5% 100ML 100 ML IV SCH ×3 (05:07→21:56)
[2016-07-16 07:26] LABS: HEMATOCRIT 34.1 % (37-47); MEAN CELL VOLUME 94.7 fL (80-100); MEAN CORPUSCULAR HEMOGLOBIN 31.4 pg (25-34); MEAN CORPUSCULAR HGB CONC 33.1 g/dl (32-36); MEAN PLATELET VOLUME 9.9 fL (7.4-10.4); PLATELET COUNT 178 K/uL (130-400); WHITE BLOOD COUNT 4.01 K/uL (4.8-10.8)
[2016-07-16 07:46] LABS: INR 1.1 (0.9-1.1); PARTIAL THROMBOPLASTIN RATIO 1.4; PROTHROMBIN TIME (PATIENT) 11.8 SECONDS (9.0-12.0)
[2016-07-16 08:05] LABS: ALT/SGPT 24 U/L (12-78); AST/SGOT 22 U/L (15-37); BLOOD UREA NITROGEN 9 mg/dl (7-18); BUN/CREATININE RATIO 14.2 (10-20); CALCIUM 7.9 mg/dl (8.5-10.1); CARBON DIOXIDE 19 mmol/L (21-32); CHLORIDE 110 mmol/L (98-107); CREATININE 0.65 mg/dl (0.60-1.20); GLUCOSE 57 mg/dl (70-99); MAGNESIUM 1.7 mg/dl (1.8-2.4); POTASSIUM 4.1 mmol/L (3.5-5.1); SODIUM 141 mmol/L (136-145)
[2016-07-16 08:08] LABS: ALKALINE PHOSPHATASE 71 U/L (45-117)
[2016-07-16 08:21] LABS: BASO % 0.2 %; BASO ABS # 0.01 K/uL (0-0.2); COMPLETE YES; EOS % 1.2 %; IG% 0.2 %; LYMPH % 29.2 %; LYMPH ABS # 1.17 K/uL (1.2-3.4); MONO % 4.2 %
[2016-07-16] MEDS ORDERED: MAGNESIUM SULFATE 1GM / D5W 1 GM in PREMIXED IN D5W 100 ML IV ONE (09:00)
--- NOTE | 2016-07-16 10:08 | Progress Note ---
Subjective Date of Service: Jul 16, 2016. (Judith Romano PA-C) Subjective Pt evaluation today including: conversation w/ patient, physical exam, chart review, lab review, review of studies, review of inpatient medication list Patient seen and evaluated. No acute events overnight. Currently reporting pain is adequately controlled. Some RUQ pain remains. Reporting some generalized weakness. Glucose on a.m. labs 57. General surgery and see patient this morning planning for laparoscopic cholecystectomy today. Patient denies fever/chills, nausea/vomiting, and no recent episodes of diarrhea. Continues to pass flatus. Patient reports no family history of reactions to anesthesia. Patient has a sister with factor V Leiden and elevated homocystine levels. She reports she has been tested and negative. Patient denies any personal history of bleeding disorders or blood clots. (Judith Romano PA-C) Problem List Medical Problems: (1) Diarrhea Status: Chronic (2) Fever Status: Acute (3) Right sided abdominal pain Status: Acute (Judith Romano PA-C) Review of Systems Constitutional: + weakness (generalized), No chills, No fever Respiratory: No shortness of breath Cardiac: No chest pain Abdomen: + pain (RUQ), No constipation, No diarrhea, No nausea, No vomiting Musculoskeletal: No calf pain, No swelling Female : No dysuria Skin: No new/changing skin lesions, No rash (Judith Romano PA-C) Medications Current Inpatient Medications Medications (Trade) Dose Ordered Sig/Celeste Route Start Time Stop Time Status Last Admin Dose Admin Ioversol (Optiray 320) 125 ml UD PRN IV 07/14/16 18:45 07/18/16 18:44 Acetaminophen (Tylenol Tab) 650 mg Q4H PRN PO 07/14/16 21:00 08/13/16 20:59 07/14/16 21:12 650 MG Ondansetron HCl 4 mg 4 mg Q6H PRN IV 07/14/16 21:00 08/13/16 20:59 Acetaminophen (Ofirmev Iv) 100 ml @ 400 mls/hr Q8H PRN IV 07/14/16 21:00 08/13/16 20:59 Ketorolac Tromethamine 30 mg 30 mg Q6H PRN IV 07/14/16 21:00 07/19/16 20:59 07/15/16 15:57 30 MG Pantoprazole Sodium/Syringe (Protonix Inj/ Syringe) 10 ml @ 5 mls/min DAILY@11 IV 07/15/16 11:00 08/14/16 10:59 07/15/16 11:10 5 MLS/MIN Morphine Sulfate (MoRPHine SULFATE INJ) 2 mg Q2H PRN IV 07/14/16 21:00 07/28/16 20:59 Morphine Sulfate 4 mg 4 mg Q2H PRN IV 07/14/16 21:00 07/28/16 20:59 Piperacillin Sod/ Tazobactam Sod/ Dextrose (Zosyn Iv/D5 100ml) 115 ml @ 28.75 mls/ hr Q8H IV 07/15/16 05:00 07/25/16 04:59 07/16/16 05:07 28.75 MLS/HR Piperacillin Sod/ Tazobactam Sod 1 ea 1 ea UD PRN N/A 07/14/16 22:30 08/13/16 22:29 Dextrose/Sodium Chloride 1,000 ml @ 100 mls/hr Q10H IV 07/16/16 08:45 08/15/16 08:44 Magnesium Sulfate/ Prmx (Magnesium Sulfate/Premixed D5W) 100 ml @ 100 mls/hr 0900 ONCE IV 07/16/16 09:00 07/16/16 09:59 (Judith Romano PA-C) Objective Vital Signs Date Time Temp Pulse Resp B/P Pulse Ox O2 Delivery O2 Flow Rate FiO2 07/16/16 07:13 36.7 73 16 111/66 99 Room Air 07/15/16 23:55 Room Air 07/15/16 23:01 36.8 71 16 104/63 98 Room Air 07/15/16 16:05 Room Air 07/15/16 15:18 37.0 90 18 98/57 98 Room Air (Judith Romano PA-C) Physical Exam General Appearance: WD/WN, no apparent distress Eyes: sclerae normal ENT: hearing grossly normal Neck: supple, no JVD, trachea midline Respiratory/Chest: lungs clear, normal breath sounds, no respiratory distress, no accessory muscle use Cardiovascular: regular rate, rhythm, no gallop, no murmur Abdomen: normal bowel sounds, non tender, soft Extremities: no pedal edema, no calf tenderness Neurologic/Psychiatric: alert, oriented x 3 Skin: normal color, warm/dry (Judith Romano, LENNY) Laboratory Results Last 24 Hours Test 07/16/16 06:46 07/16/16 08:01 White Blood Count 4.01 K/uL Red Blood Count 3.60 M/uL Hemoglobin 11.3 g/dL Hematocrit 34.1 % Mean Corpuscular Volume 94.7 fL Mean Corpuscular Hemoglobin 31.4 pg Mean Corpuscular Hemoglobin Concent 33.1 g/dl Platelet Count 178 K/uL Mean Platelet Volume 9.9 fL Neutrophils (%) (Auto) 65.0 % Lymphocytes (%) (Auto) 29.2 % Monocytes (%) (Auto) 4.2 % Eosinophils (%) (Auto) 1.2 % Basophils (%) (Auto) 0.2 % Neutrophils # (Auto) 2.60 K/uL Lymphocytes # (Auto) 1.17 K/uL Monocytes # (Auto) 0.17 K/uL Eosinophils # (Auto) 0.05 K/uL Basophils # (Auto) 0.01 K/uL RDW Standard Deviation 49.5 fL RDW Coefficient of Variation 14.1 % Immature Granulocyte % (Auto) 0.2 % Immature Granulocyte # (Auto) 0.01 K/uL Prothrombin Time 11.8 SECONDS Prothromb Time International Ratio 1.1 Activated Partial Thromboplast Time 37.3 SECONDS Partial Thromboplastin Ratio 1.4 Sodium Level 141 mmol/L Potassium Level 4.1 mmol/L Chloride Level 110 mmol/L Carbon Dioxide Level 19 mmol/L Anion Gap 12.0 mmol/L Blood Urea Nitrogen 9 mg/dl Creatinine 0.65 mg/dl Est Creatinine Clear Calc Drug Dose 85.4 ml/min Estimated GFR () 120.0 Estimated GFR (Non- 103.5 BUN/Creatinine Ratio 14.2 Random Glucose 57 mg/dl Calcium Level 7.9 mg/dl Magnesium Level 1.7 mg/dl Total Bilirubin 0.3 mg/dl Direct Bilirubin < 0.1 mg/dl Aspartate Amino Transf (AST/SGOT) 22 U/L Alanine Aminotransferase (ALT/SGPT) 24 U/L Alkaline Phosphatase 71 U/L Total Protein 5.5 gm/dl Albumin 2.6 gm/dl (Judith Romano PA-C) Assessment and Plan SIRS: Abdominal Pain with N/V/D - Distended GB: IMPROVING - Patient remains leukopenic however afebrile - Protonix 40 mg IV daily - Zosyn 3.375 g Q8H - Toradol 30 mg IV Q6H PRN and morphine 2 mg PRN - HIDA -report reviewed - EF 5% - Trend CBC, LFTs, BMP - Consult GI - appreciate recommendations - consideration for celiac testing - has been negative past - General Surgery following - plan for laparoscopic cholecystectomy today Pre-Operative Clearance: - Patient with no significant past medical history - patient is afebrile with mild leukopenia - No personal history of cardiac abnormalities or bleeding disorder/clotting disorder - Family history positive for factor V Leiden and elevated homocysteine levels - patient reports she has been tested negative - Plan for laparoscopic cholecystectomy today - patient is optimal from a medical standpoint for surgery Diarrhea: Hypomagnesemia - Change fluids to D5 and 1/2 NSS 100 mL/hr - Magnesium sulfate 1 g IV 1 dose - C. diff negative and neg. for Salmonella - Monitor electrolytes DVT Prophylaxis: - CONNIE/SCDs/Ambulation Code Status: FULL RESUSCITATION Disposition: Return home when medically stable (Judith Romano PA-C) I personally evaluated this patient and performed a physical exam. I reviewed the orders. I read this note completed by Judith Romano PA-C and agree with the contents in entirety. (Nicko Edge, DO)
[2016-07-16] MEDS: D5W AND 1/2NSS 1,000 ML IV SCH ×2 (10:11→15:22)
--- NOTE | 2016-07-16 10:40 | Surgery Consultation ---
Consultation Date of Consultation: Jul 16, 2016. Attending Physician: Nicko Edge, History of Present Illness pt with several months of some mild nausea, RUQ pain...worsened this admission. also has intermittent loose bm's/worse in the morning which clinically sounds more like IBS...feeling better this am. HIDA scan shows 5 % EF Past Medical/Surgical History Medical Problems: (1) Diarrhea Status: Chronic (2) Fever Status: Acute (3) Right sided abdominal pain Status: Acute Family History Heart disease Hypertension Social History Smoking Status: Never Smoker Smokeless Tobacco Use: No Alcohol Use: none Drug Use: none Marital Status: Housing Status: lives with family Occupation Status: employed Allergies Coded Allergies: No Known Allergies (Verified , 07/14/16) Home Medications Scheduled Aspirin (Aspirin Chewable), 81 MG PO UD Biotin (Biotin), Unknown Dose PO DAILY Cholecalciferol (Vitamin D), 1,000 UNIT PO DAILY Multivitamin (Multivitamin), 1 TAB PO DAILY Current Inpatient Medications Current Inpatient Medications Medications (Trade) Dose Ordered Sig/Celeste Route Start Time Stop Time Status Last Admin Dose Admin Ioversol (Optiray 320) 125 ml UD PRN IV 07/14/16 18:45 07/18/16 18:44 Acetaminophen (Tylenol Tab) 650 mg Q4H PRN PO 07/14/16 21:00 08/13/16 20:59 07/14/16 21:12 650 MG Ondansetron HCl 4 mg 4 mg Q6H PRN IV 07/14/16 21:00 08/13/16 20:59 Acetaminophen (Ofirmev Iv) 100 ml @ 400 mls/hr Q8H PRN IV 07/14/16 21:00 08/13/16 20:59 Ketorolac Tromethamine 30 mg 30 mg Q6H PRN IV 07/14/16 21:00 07/19/16 20:59 07/15/16 15:57 30 MG Pantoprazole Sodium/Syringe (Protonix Inj/ Syringe) 10 ml @ 5 mls/min DAILY@11 IV 07/15/16 11:00 08/14/16 10:59 07/15/16 11:10 5 MLS/MIN Morphine Sulfate (MoRPHine SULFATE INJ) 2 mg Q2H PRN IV 07/14/16 21:00 07/28/16 20:59 Morphine Sulfate 4 mg 4 mg Q2H PRN IV 07/14/16 21:00 07/28/16 20:59 Piperacillin Sod/ Tazobactam Sod/ Dextrose (Zosyn Iv/D5 100ml) 115 ml @ 28.75 mls/ hr Q8H IV 07/15/16 05:00 07/25/16 04:59 07/16/16 05:07 28.75 MLS/HR Piperacillin Sod/ Tazobactam Sod 1 ea 1 ea UD PRN N/A 07/14/16 22:30 08/13/16 22:29 Dextrose/Sodium Chloride (D5W And 1/2nss) 1,000 ml @ 100 mls/hr Q10H IV 07/16/16 08:45 08/15/16 08:44 07/16/16 10:11 100 MLS/HR Review of Systems Constitutional: + fever Abdomen: + nausea, + pain Physical Exam Date Time Temp Pulse Resp B/P Pulse Ox O2 Delivery O2 Flow Rate FiO2 07/16/16 07:13 36.7 73 16 111/66 99 Room Air 07/15/16 23:55 Room Air 07/15/16 23:01 36.8 71 16 104/63 98 Room Air 07/15/16 16:05 Room Air 07/15/16 15:18 37.0 90 18 98/57 98 Room Air General Appearance: no apparent distress Head: normocephalic, atraumatic Eyes: PERRL, EOMI ENT: hearing grossly normal Neck: supple, no adenopathy Respiratory/Chest: no respiratory distress, no accessory muscle use Cardiovascular: regular rate, rhythm Abdomen/GI: soft, + pertinent finding (mild RUQ ttp. no g/r/r) Extremities/Musculoskelatal: no calf tenderness Neurologic/Psych: alert, normal mood/affect, oriented x 3 Skin: normal color, warm/dry Laboratory Results Last 24 Hours Test 07/16/16 06:46 07/16/16 08:01 White Blood Count 4.01 K/uL Red Blood Count 3.60 M/uL Hemoglobin 11.3 g/dL Hematocrit 34.1 % Mean Corpuscular Volume 94.7 fL Mean Corpuscular Hemoglobin 31.4 pg Mean Corpuscular Hemoglobin Concent 33.1 g/dl Platelet Count 178 K/uL Mean Platelet Volume 9.9 fL Neutrophils (%) (Auto) 65.0 % Lymphocytes (%) (Auto) 29.2 % Monocytes (%) (Auto) 4.2 % Eosinophils (%) (Auto) 1.2 % Basophils (%) (Auto) 0.2 % Neutrophils # (Auto) 2.60 K/uL Lymphocytes # (Auto) 1.17 K/uL Monocytes # (Auto) 0.17 K/uL Eosinophils # (Auto) 0.05 K/uL Basophils # (Auto) 0.01 K/uL RDW Standard Deviation 49.5 fL RDW Coefficient of Variation 14.1 % Immature Granulocyte % (Auto) 0.2 % Immature Granulocyte # (Auto) 0.01 K/uL Prothrombin Time 11.8 SECONDS Prothromb Time International Ratio 1.1 Activated Partial Thromboplast Time 37.3 SECONDS Partial Thromboplastin Ratio 1.4 Sodium Level 141 mmol/L Potassium Level 4.1 mmol/L Chloride Level 110 mmol/L Carbon Dioxide Level 19 mmol/L Anion Gap 12.0 mmol/L Blood Urea Nitrogen 9 mg/dl Creatinine 0.65 mg/dl Est Creatinine Clear Calc Drug Dose 85.4 ml/min Estimated GFR () 120.0 Estimated GFR (Non- 103.5 BUN/Creatinine Ratio 14.2 Random Glucose 57 mg/dl Calcium Level 7.9 mg/dl Magnesium Level 1.7 mg/dl Total Bilirubin 0.3 mg/dl Direct Bilirubin < 0.1 mg/dl Aspartate Amino Transf (AST/SGOT) 22 U/L Alanine Aminotransferase (ALT/SGPT) 24 U/L Alkaline Phosphatase 71 U/L Total Protein 5.5 gm/dl Albumin 2.6 gm/dl Assessment & Plan biliary dyskinesia discussed options. I question whether this is the etiology of this admissions symptoms. certainly no guarantee that all her symptoms will resolve with lap mireille. we discussed conservative tx as well as surgical risks ( bleeding/ infection/dvt/pe/mi/injury to bile ducts or bowel etc...). she is adamant about wanting to have her gallbladder out this admission. she does understand this could make ibs worse. answered questions. will proceed with lap mireille today.
[2016-07-16] MEDS: PANTOprazole INJ 40 MG in SYRINGE 0 ML IV SCH (10:48)
[2016-07-16] MEDS ORDERED: EpHEDrine SULFATE INJ 50 MG/ML AMP IV PRN (11:45)
[2016-07-16] MEDS ORDERED: NALOXONE HCL 0.4 MG/1 ML VIAL/CARP IV PRN (11:45)
[2016-07-16] MEDS ORDERED: MEPERIDINE HCL 25 MG/ML CARP IV PRN (11:45)
[2016-07-16] MEDS ORDERED: ONDANSETRON INJ 2 MG/ML 2 ML VIAL IV PRN (11:45)
[2016-07-16] MEDS ORDERED: FLUMAZENIL 0.1 MG/1 ML 10 ML VIAL IV PRN (11:45)
[2016-07-16] MEDS ORDERED: LABETALOL HCL IV 5 MG/ML 20ML IV PRN (11:45)
[2016-07-16] MEDS ORDERED: PHENYLEPHRINE 100MCG/ML 5ML SYR IV PRN (11:45)
[2016-07-16] MEDS ORDERED: ATROPINE SULFATE 0.1 MG/ML 5ML SYR IV PRN (11:45)
[2016-07-16] MEDS ORDERED: BUPIVACAINE/EPINEPHRINE 0.5% MPF 1:200,000 30 ML VIAL ONE (12:25)
[2016-07-16] MEDS ORDERED: PROPOFOL IV EMULSION 10 MG/ML 20 ML VIAL IV ONE (12:30)
[2016-07-16] MEDS ORDERED: NEOSTIGMINE METHYLSULFATE 5 MG/5 ML SYR ONE (12:30)
[2016-07-16] MEDS ORDERED: DEXAMETHASONE SOD INJ 4 MG/ML VIAL ONE (12:30)
[2016-07-16] MEDS ORDERED: LIDOCAINE HCL 2% 2 ML VIAL (20MG/ML) ONE (12:30)
[2016-07-16] MEDS ORDERED: GLYCOPYRROLATE INJ 0.2 MG/ML VIAL ONE ×2 (12:30→13:04)
[2016-07-16] MEDS ORDERED: FENTANYL CITRATE INJ 50 MCG/1 ML 2 ML VIAL ONE ×3 (12:30→13:06)
[2016-07-16] MEDS ORDERED: MIDAZOLAM HCL 1 MG/ML 2ML VIAL ONE (12:30)
[2016-07-16] MEDS ORDERED: ROCURONIUM BROMIDE 10 MG/ML 5 ML VIAL ONE (12:30)
[2016-07-16] MEDS ORDERED: ONDANSETRON INJ 2 MG/ML 2 ML VIAL ONE (12:30)
--- NOTE | 2016-07-16 13:34 | [facility] Operative Report ---
Operative Report Operative Date Jul 16, 2016. Pre-Operative Diagnosis Biliary Dyskinesia Post-Operative Diagnosis same Procedure(s) Performed lap mireille Surgeon Ryan Electrical Parts Reconditioner Surgeon(s) Alok Jackson PA-C Findings ? mildly inflammed gallbladder wall Specimens A: Gallbladder Anesthesia get Complication(s) None Disposition Recovery Room / PACU I attest to the content of the Intraoperative Record and any orders documented therein. Any exceptions are noted below.
[2016-07-16] MEDS ORDERED: HYDROCODONE/ACETAMOPHEN 5/325MG TAB PO PRN ×2 (13:45)
--- NOTE | 2016-07-16 13:46 | Medical Student: [facility] ---
Immediate Operative Summary Operative Date Jul 16, 2016. Pre-Operative Diagnosis Biliary dyskinesia Post-Operative Diagnosis Same as above Procedure(s) Performed Laparoscopic cholecystectomy Surgeon Dr. Davis Community Service Worker Surgeon(s) Alok Mustafa PA-C Estimated Blood Loss 10 cc Findings Mild inflammation of the gallbladder. Enlarged Calot's node. Specimens 1. Gallbladder Drains None Anesthesia GETA Complication(s) None Disposition Recovery Room / PACU (In stable condition)
[2016-07-16] MEDS: FENTANYL CITRATE INJ 50 MCG/1 ML 2 ML VIAL IV PRN ×4 (13:55→14:10)
--- NOTE | 2016-07-16 14:14 | Anesthesiology Progress Note ---
Anesthesia Post Op Note Date & Time Jul 16, 2016 at 14:14 Vital Signs Pain Intensity: 3 Vital Signs Past 12 Hours Date Time Temp Pulse Resp B/P Pulse Ox O2 Delivery O2 Flow Rate FiO2 07/16/16 14:00 60 16 147/81 100 Mask 10 07/16/16 13:50 36.2 90 16 138/81 100 Mask 10 07/16/16 08:20 99 Room Air 07/16/16 07:13 36.7 73 16 111/66 99 Room Air Notes Mental Status: alert / awake / arousable, participated in evaluation Pt Amnestic to Procedure: Yes Nausea / Vomiting: adequately controlled Pain: adequately controlled Airway Patency, RR, SpO2: stable & adequate BP & HR: stable & adequate Hydration State: stable & adequate Anesthetic Complications: no major complications apparent
[2016-07-16] MEDS: HYDROmorphone INJ 2 MG/ML SYR/VIAL IV PRN ×4 (14:20→14:35)
--- NOTE | 2016-07-16 14:29 | OPERATIVE REPORT ---
DATE OF OPERATION: 07/16/2016 PREOPERATIVE DIAGNOSIS: Biliary dyskinesia. POSTOPERATIVE DIAGNOSIS: Same. PROCEDURE: Laparoscopic cholecystectomy. SURGEON: Dr. Jason Davis. MIXING MACHINE TENDER CORK ROD: Patrice Mustafa PA-C. ESTIMATED BLOOD LOSS: Approximately 20 mL. COMPLICATIONS: No immediate. ANESTHESIA: General. The patient tolerated the procedure well. OPERATIVE NOTE: After informed consent was obtained, the patient was taken to the operating suite and placed in supine position. After successful intubation, the abdomen was sterilely prepped and draped in usual fashion. A periumbilical incision was made with an 11 blade scalpel and carried down through the soft tissue using electrocautery. Anterior rectus fascia was opened using electrocautery and two #0 Vicryl stay sutures were placed. Peritoneum was elevated with hemostats and incised under direct vision using a Metzenbaum scissor. A finger sweep was performed. A 12-mm Gamaliel trocar was placed and the abdomen was insufflated to 18 mmHg. Laparoscope was inserted. No abnormalities were identified. A subxiphoid 5-mm port and 2 right upper quadrant 5-mm ports were placed under direct vision. The patient was placed in reverse Trendelenburg position slightly airplaned to the left. We grasped the gallbladder and elevated it superiorly and laterally. [place] dissector was used to take down adhesions around the neck of the gallbladder. I was then able to skeletonize the cystic duct with a [place]. We clipped it twice proximally and once distally and transected using laparoscopic scissor. In similar fashion, we skeletonized the cystic artery, clipped and divided it as well. There was a small posterior branch, which I clipped and divided also. Electrocautery was used to remove the gallbladder from the gallbladder fossa. We did make a small hole in it during this process, releasing some bile in the right upper quadrant. We removed the gallbladder in its entirety and placed into an EndoCatch bag. We then thoroughly irrigated the right upper quadrant until all the irrigant was clear. We also suctioned out a small amount of bile in the pelvis. We thoroughly irrigated the pelvis and right upper quadrant. Several small bleeding points in the gallbladder fossa were controlled using electrocautery. At the end of the procedure, there was adequate hemostasis and no evidence of a bile leak. The gallbladder and trocars were all removed and the abdomen was desufflated. The fascia of the camera port was closed using 0 Vicryl in a [id number] fashion. All the wounds were irrigated and closed using 4-0 Monocryl. Marcaine was injected around them for postoperative analgesia and skin glue used as a dressing. The patient was awakened, extubated, and transferred to recovery in stable condition. I attest to the content of the Intraoperative Record and any orders documented therein. Any exceptio ns are noted below.
--- NOTE | 2016-07-16 18:24 | GASTROENTEROLOGY PROGRESS NOTE ---
DATE: 07/16/2016 GASTROENTEROLOGY INPATIENT PROGRESS NOTE SUBJECTIVE: The patient underwent a laparoscopic cholecystectomy for a markedly diminished ejection fraction of the gallbladder. She had just returned to the floor about an hour ago and is somewhat groggy but arousable and answers questions appropriately. The patient currently has no significant abdominal pain. I spoke with the patient to clarify some earlier points regarding rectal bleeding. Initially, it was believed that her rectal bleeding was recent; however, she reports that this actually happened over [place] with a single event of painless bleeding unassociated with either straining or overly loose stools, that was bloody in the water. Her next bowel movement showed no blood and she has been monitoring this and has had no return of bleeding. There was no pain with defecation following this single event. She describes her stool patterns generally is 2-3, very soft and occasional loose stools that seemed to occur mostly in the morning and the remainder of the day is reasonable for her. LABORATORY STUDIES: Today - white count 4.0, hemoglobin 11.3, MCV 94. Chemistries today - BUN and creatinine are 9 and 0.6, blood sugar is 57. Magnesium is slightly low at 1.7. LFTs were all normal. REVIEW OF SYSTEMS: Otherwise noncontributory based on 14-point exam. MEDICATIONS: Reviewed and include Tylenol with hydrocodone, pantoprazole, Zosyn, and Toradol. PHYSICAL EXAMINATION: VITAL SIGNS: Afebrile 36.5, blood pressure 103/61, heart rate 60, respirations 16, 99% on 2 liters. GENERAL: The patient is slightly groggy but is easily arousable and oriented to person, place and time. HEENT: Oral mucosa moist. HEART: Normal S1, S2. LUNGS: Clear to auscultation. ABDOMEN: Soft, nontender, nondistended without rebound or guarding. The bowel sounds are quiet. EXTREMITIES: Without edema. RECTAL: Deferred. IMPRESSION AND PLAN: The patient is status post cholecystectomy a short time ago for dysfunctional gallbladder. Will await response to this surgery regarding her abdominal pain. Depending on her residual symptoms, further workup may be necessary. The patient has been followed in the past by Dr. Patel and I will plan to have an office visit as an outpatient over the next 4-6 weeks to address any residual bowel habit changes that she is experiencing. All of her questions were answered. Will sign off at this time. Thank you for allowing me to participate in this pleasant lady's care.
[2016-07-16] MEDS: KETOROLAC TROMETHAMINE 30 MG/ML VIAL IV PRN (19:54)
[2016-07-17] MEDS: D5W AND 1/2NSS 1,000 ML IV SCH (01:14)
[2016-07-17] MEDS: KETOROLAC TROMETHAMINE 30 MG/ML VIAL IV PRN (03:24)
[2016-07-17 03:34] VITALS: BP 118/73; PULSE 51; TEMP 36.8; O2SAT 98
[2016-07-17] MEDS: PIPERACILL/TAZOBAC IV 3.375 GM in DEXTROSE 5% 100ML 100 ML IV SCH ×2 (04:46→12:58)
[2016-07-17 07:36] VITALS: BP 124/78; PULSE 83; TEMP 36.8; O2SAT 98
--- NOTE | 2016-07-17 07:58 | Surgery Progress Note ---
Surgery Progress Note Date of Service Jul 17, 2016. Subjective Post OP Day: 1 + diet (clears), + feeling well, + pain controlled, No nausea Objective Vital Signs: Date Time Temp Pulse Resp B/P Pulse Ox O2 Delivery O2 Flow Rate FiO2 07/17/16 07:36 36.8 83 18 124/78 98 Room Air 07/17/16 03:34 36.8 51 16 118/73 98 Room Air 07/17/16 00:35 Room Air 07/16/16 22:52 36.6 71 18 120/79 97 Room Air 07/16/16 19:40 Room Air 07/16/16 19:16 36.7 62 16 107/67 96 Room Air 07/16/16 17:15 36.5 60 16 103/61 99 Nasal Cannula 2.0 07/16/16 16:13 36.3 64 16 98/56 99 Nasal Cannula 2.0 07/16/16 15:45 36.5 70 16 95/62 99 Nasal Cannula 2.0 07/16/16 15:15 94 Nasal Cannula 2.0 07/16/16 15:15 36.6 61 16 101/65 94 Nasal Cannula 2.0 07/16/16 15:15 94 Nasal Cannula 2.0 07/16/16 14:51 66 23 100 07/16/16 14:51 65 23 07/16/16 14:50 105/59 07/16/16 14:46 60 12 07/16/16 14:46 60 12 100 07/16/16 14:45 108/69 07/16/16 14:41 61 12 07/16/16 14:41 62 12 100 07/16/16 14:40 103/70 07/16/16 14:36 55 11 100 07/16/16 14:36 55 11 07/16/16 14:35 116/68 07/16/16 14:31 55 13 100 07/16/16 14:31 56 13 07/16/16 14:31 36.6 62 17 116/68 100 Nasal Cannula 2 07/16/16 14:30 130/69 07/16/16 14:26 58 15 100 07/16/16 14:26 58 15 07/16/16 14:25 128/69 07/16/16 14:21 59 15 07/16/16 14:21 60 15 100 07/16/16 14:20 58 15 07/16/16 14:20 58 15 127/73 99 07/16/16 14:10 63 16 127/72 100 Nasal Cannula 2 07/16/16 14:00 60 16 147/81 100 Mask 10 07/16/16 13:50 36.2 90 16 138/81 100 Mask 10 07/16/16 08:20 99 Room Air Abdomen: non distended, soft Incision(s): clean, dry Laboratory Results: Results Past 24 Hours Test 07/16/16 08:01 07/16/16 11:55 07/17/16 04:44 Range/Units Bedside Glucose 89 70-90 mg/dl Assessment & Plan s/p lap mireille advance diet ok for d/c if tolerates diet and [place] f/u in clinic 2 weeks
[2016-07-17 08:24] LABS: BASO % 0.2 %; BASO ABS # 0.01 K/uL (0-0.2); COMPLETE YES; HEMATOCRIT 34.3 % (37-47); IG% 0.2 %; LYMPH % 21.2 %; LYMPH ABS # 1.29 K/uL (1.2-3.4); MEAN CELL VOLUME 93.7 fL (80-100); MEAN CORPUSCULAR HEMOGLOBIN 31.1 pg (25-34); MEAN CORPUSCULAR HGB CONC 33.2 g/dl (32-36); MEAN PLATELET VOLUME 9.8 fL (7.4-10.4); MONO % 11.5 %; NEUT % 66.9 %; PLATELET COUNT 184 K/uL (130-400); RED BLOOD COUNT 3.66 M/uL (4.2-5.4); WHITE BLOOD COUNT 6.09 K/uL (4.8-10.8)
[2016-07-17 08:39] LABS: PARTIAL THROMBOPLASTIN RATIO 1.2; PROTHROMBIN TIME (PATIENT) 11.2 SECONDS (9.0-12.0)
[2016-07-17 08:50] LABS: ALT/SGPT 59 U/L (12-78); BLOOD UREA NITROGEN 4 mg/dl (7-18); BUN/CREATININE RATIO 5.1 (10-20); CALCIUM 8.5 mg/dl (8.5-10.1); CARBON DIOXIDE 27 mmol/L (21-32); CHLORIDE 106 mmol/L (98-107); CREATININE 0.77 mg/dl (0.60-1.20); GLUCOSE 155 mg/dl (70-99); MAGNESIUM 1.8 mg/dl (1.8-2.4); POTASSIUM 3.9 mmol/L (3.5-5.1); SODIUM 141 mmol/L (136-145)
[2016-07-17 08:58] LABS: ALKALINE PHOSPHATASE 77 U/L (45-117); AST/SGOT 54 U/L (15-37)
[2016-07-17 09:30] VITALS: O2SAT 98
[2016-07-17] MEDS: PANTOprazole INJ 40 MG in SYRINGE 0 ML IV SCH (10:41)
--- NOTE | 2016-07-17 12:04 | Discharge Instructions ---
Discharge Instructions Date of Service Jul 17, 2016. Admission Reason for Admission: Fever Gall Bladder Disease Discharge Discharge Diagnosis / Problem: Biliary Dyskinesia S/P Laparoscopic Cholecystectomy Discharge Goals Goal(s): Decrease discomfort, Improve disease control, Learn about illness Activity Recommendations Activity Limitations: as noted below Lifting Limitations: gradually increase as tolerated Exercise/Sports Limitations: gradually increase as tolerated May Resume Sexual Activity: when tolerated Shower/Bathe: no limitations Driving or Machine Use: do not operate vehicles when using pain medication . Instructions / Follow-Up Instructions / Follow-Up Biliary Dyskinesia (Dysfunctional Gallbladder) S/P Laparoscopic Cholecystectomy: - You may resume a normal diet as tolerated. Be mindful of high fat foods which may exacerbate the diarrhea. - You may increase your activity as tolerated. You may shower. -- Monitor your incision sites for redness, increased pain, swelling, warmth , or drainage that would suggest infection. - You have received antibiotics while hospitalized and you have had no more fevers - this coverage has been adequate and will not need to continue antibiotics at home. - You will be provided a prescription for [place] 5 mg/325 mg - you may take 1 pill for mild pain or 2 pills for severe pain - You will be provided with a prescription for protonix 40 mg daily to help with acid reflux -- If you are not having symptoms you do not need to take this medication and may want to wait until follow-up with GI. A prescription will be provided just in case. As well you can use [id number] acid medication if needed. - General surgery will call you to set up an appointment in 2 weeks - Follow-up with GI - Dr. Patel - in 6-8 weeks as already established - Please see your family doctor in 7-10 days. Current Hospital Diet Patient's current hospital diet: Regular Diet Discharge Diet Recommended Diet: Regular Diet Procedures Procedures Performed: Laparoscopic Cholecystectomy Pending Studies Studies pending at discharge: no Medical Emergencies . Who to Call and When: Medical Emergencies: If at any time you feel your situation is an emergency, please call 911 immediately. . Non-Emergent Contact Non-Emergency issues call your: Primary Care Provider Call Non-Emergent contact if: you have a fever, your pain is concerning you, you have any medication questions . . "Provider Documentation" section prepared by Judith Romano. VTE Core Measure Inpt VTE Proph given/why not?: SCD's [place] Drug Monitoring Program Search Results: patient reviewed within database, no issues identified
[2016-07-17] MEDS ORDERED: PANT40TA PO (12:09)
[2016-07-17] MEDS ORDERED: HYDR-5688 PO (12:09)
[2016-07-17 14:27] VITALS: BP 124/78; PULSE 83; TEMP 36.8; O2SAT 98
--- NOTE | 2016-07-17 17:34 | Discharge Summary ---
Discharge Summary Date of Service Jul 17, 2016. (Judith Romano PA-C) Discharge Summary Admission Date: Jul 14, 2016 at 20:51 Discharge Date: Jul 17, 2016 Discharge Disposition: Home Principal Diagnosis: Biliary Dyskinesia S/P Laparoscopic Cholecystectomy Problems/Secondary Diagnoses: (1) Diarrhea Status: Chronic Procedures: 1. ABDOMINAL ULTRASOUND, RIGHT UPPER QUADRANT HISTORY: Generalized abdominal pain.. COMPARISON: None. FINDINGS: Pancreas: The pancreas demonstrates a normal echotexture. Liver: Unremarkable. Gallbladder: No gallbladder wall thickening. No gallstones. The gallbladder is mildly distended. CBD: 6 mm. Right kidney: No hydronephrosis. IMPRESSION: The gallbladder is mildly distended. However, there is no gallbladder wall thickening.. No gallstones. 2. ABDOMEN AND PELVIS CT WITH IV AND ORAL CONTRAST CT DOSE: 274.29 mGy.cm HISTORY: right sided pain TECHNIQUE: Multiaxial CT images of the abdomen and pelvis were performed following the use of intravenous and oral contrast. COMPARISON STUDY: Abdomen and pelvis CT 11/17/2005. FINDINGS: The lung bases are clear. Bilateral breast augmentation. The liver, pancreas, spleen, and adrenal glands are unremarkable. The kidneys enhance normally. No renal stones. Mild fullness within the left renal collecting system without mimi hydronephrosis. No retroperitoneal lymphadenopathy. The gallbladder size distended. The uterus, adnexa, and bladder are unremarkable. The patient appears to be identified and is normal in caliber. This is best seen on image 267. No bowel wall thickening or obstruction. IMPRESSION: 1. No bowel wall thickening or obstruction. 2. The appendix appears to be within normal limits. 3. Mild fullness within the left renal collecting system without mimi hydronephrosis. 4. Mildly distended gallbladder. No gallbladder wall thickening. Recommend correlation with LFTs. 3. NUCLEAR MEDICINE HEPATOBILIARY SCAN WITH EJECTION FRACTION HISTORY: distended gallbladder, diarrhea, fever COMPARISON: Abdomen and pelvis CT 07/14/2016. TECHNIQUE: Immediately following the intravenous administration of 5.4 mCi Tc-99m Choletec, dynamic anterior abdominal imaging pre/post 1.2 mcg of Kinevac was performed. FINDINGS: Uniform hepatic tracer accumulation is shown. Prompt intrahepatic biliary excretion is seen. The gallbladder, common bile duct, and small bowel are all visualized by 25 minutes. This appearance represents the normal sequence of biliary excretion. The gall bladder ejection fraction following administration of Kinevac was 5% (normal >35%). IMPRESSION: 1. No evidence for cystic duct obstruction. 2. Abnormally low gallbladder ejection fraction calculated to be 5 %. Consultations: 1. Gastroenterology 2. General Surgery (Judith Romano PA-C) Medication Reconciliation New Medications: Pantoprazole (Protonix) 40 Mg Tab 40 MG PO DAILY, #30 TAB Hydrocodone/Acetaminophen 5MG/325MG ([place] 5MG/325MG) Tab 1-2 TAB PO Q4 PRN for Pain, #15 TAB Take one tablet for moderate pain and two tablets for severe pain. Continued Medications: Aspirin (Aspirin Chewable) 81 Mg Chew 81 MG PO UD Biotin (Biotin) Unknown Strength Cap Unknown Dose PO DAILY Cholecalciferol (Vitamin D) 1,000 Unit Tab 1000 UNIT PO DAILY Multivitamin (Multivitamin) Tab 1 TAB PO DAILY, TAB Discharge Exam Review of Systems: Constitutional: No chills, No fever Eyes: No worsening of vision ENT: No nasal symptoms, No sore throat, No trouble swallowing Respiratory: No cough, No shortness of breath Cardiovascular: No chest pain Abdomen: + diarrhea (improved), + pain (minimal surgical sites), No constipation, No nausea, No vomiting Musculoskeletal: No calf pain, No swelling Genitourinary - Female: No dysuria Hematologic / Lymphatic: No abnormal bleeding/bruising, No clotting problems Integumentary: No rash Physical Exam: General Appearance: WD/WN, no apparent distress Eyes: sclerae normal ENT: hearing grossly normal Neck: supple, no JVD, trachea midline Respiratory/Chest: lungs clear, normal breath sounds, no respiratory distress, no accessory muscle use Cardiovascular: regular rate, rhythm, no gallop, no murmur Abdomen / GI: normal bowel sounds, non tender, soft, + pertinent finding ( four surgical incisions that are well approximated without erythema, edema, drainage) Extremities: no calf tenderness, no pedal edema Neurologic/Psychiatric: alert, oriented x 3 Skin: normal color, warm/dry (Judith Romano PA-C) Hospital Course ADMISSION: The patient is a 50-year-old female who presents to the emergency department with complaint of abdominal pain, diarrhea and nausea over the past 4 -5 days, which worsened considerably this morning. She has had off-and-on symptoms since 2013, at which time she had a colonoscopy and other testing which was normal. She went to [facility] earlier in the day today, and was told that she had a fever of 102. She did have a single episode of hematochezia. Today the abdominal pain has been in the form of spasms and right upper quadrant, and generalized abdominal pain throughout. She has not had any recent travel or sick exposures, and she has not eaten any questionable foods. HOSPITAL COURSE: Ms. Cortez was admitted and treated for biliary dyskinesia and is S/P laparoscopic cholecystectomy (07/16). She presented with SIRS she was leukopenic and febrile. She was initiated on Zosyn coverage prior to cholecystectomy. She received 4 total days of antibiotic treatment. Initial imaging significant for a distended gallbladder with HIDA revealing EF of 5%. Please see procedures for official imaging reports. General surgery was consulted and performed a laparoscopic cholecystectomy. Given her chronic GI complaints, gastroenterology was consulted. She was given a follow-up appointment in 6-8 weeks as to reevaluate GI complaints (if still present) after recovery from cholecystectomy. Upon admission she had multiple episodes of diarrhea. C. difficile toxin and Salmonella cultures obtained and negative. Diarrhea seemed to have improved. Upon discharge she had one episode of loose stool but she reports improvement. She was restarted on her home medications as previously prescribed. She was provided a prescription for [place] 5 mg/325 mg and instructed to use 1 tablet for moderate pain in 2 tablets for severe pain. She was also provided a prescription for Protonix 40 mg daily. She was instructed that she may use this for GERD symptoms or may discard if not needed. Patient is afebrile without leukocytosis/leukopenia, pain is adequately controlled, tolerated advancement in diet and is optimal for discharge home. She has a follow-up appointment with GI in approximately 6-8 weeks. General surgery advised they will establish follow-up appointment. She was instructed to follow-up with her PCP in 7-10 days. DVT Prophylaxis: - CONNIE/SCDs/Ambulation Code Status: FULL RESUSCITATION Total Time Spent: Greater than 30 minutes This includes examination of the patient, discharge planning, medication reconciliation, and communication with other providers. (Judith Romano PA-C) I personally evaluated this patient and performed a physical exam. I reviewed the orders. I read this discharge summary completed by Judith Romano PA-C and agree with the contents in entirety. (Nicko Edge, DO) Discharge Instructions Please refer to the electronic Patient Visit Report (Discharge Instructions) for additional information. (Judith Romano PA-C) Additional Copies To Pamela Ward M.D.
== END 2016-07-17 14:55 | disposition home or self-care (01) | DRG 418 ==
LOC: ENRESERVTM → ENRESERVDT → C.EDB 14:07 → C.MSN 20:51
PROVIDERS: ADMIT Hospitalist; ATTEND Hospitalist
PROC: 0FT44ZZ Resection of Gallbladder, Percutaneous Endoscopic Approach (ICD-10-PCS; principal; 2016-07-16 13:15)
DX: K82.8 Other specified diseases of gallbladder (principal); R65.10 Systemic inflammatory response syndrome (SIRS) of non-infectious origin without acute organ dysfunction; J45.909 Unspecified asthma, uncomplicated; Z82.49 Family history of ischemic heart disease and other diseases of the circulatory system; Z79.82 Long term (current) use of aspirin; Z79.899 Other long term (current) drug therapy; R19.7 Diarrhea, unspecified; D72.819 Decreased white blood cell count, unspecified; E83.42 Hypomagnesemia

== ENCOUNTER → 2017-07-14 | Outpatient (CLI) | payer OTHER ==
[~2017-07-14] MED LIST changes: -ALL180 PO; +ASPCH81X PO; -BCPILLS PO; +BIOT1CAP8 PO; +CHOL100010 PO; -EFFSR150 PO; +HYDR-5688 PO; +MULT-506 PO; -SNG10 PO
== END | disposition home or self-care (01) ==
LOC: C.PAPS 10:19
PROVIDERS: ATTEND Obstetrics & Gynecology
DX: Z01.419 Encounter for gynecological examination (general) (routine) without abnormal findings (principal)